=== PATIENT | female | born 1975 | race Caucasian/White ===

== ENCOUNTER 2017-10-06 07:40 | Day surgery (SDC) | payer BC ==
[2017-10-04 11:05] VITALS: BMI 20.5
[2017-10-06 07:54] VITALS: TEMP 98.1
[2017-10-06] MEDS: LACTATED RINGERS 1,000 ML IV SCH ×2 (07:54→08:34)
[2017-10-06] MEDS ORDERED: LIDOCAINE 1% 20 ML VIAL (10MG/ML) FOR IV START SQ ONE (07:57)
[2017-10-06] MEDS ORDERED: MIDAZOLAM 2 MG/2 ML VIAL IVP ONE (08:07)
[2017-10-06] MEDS ORDERED: MIDAZOLAM 2 MG/2 ML VIAL IV ONE (08:09)
[2017-10-06] MEDS ORDERED: LIDOCAINE 1% INJ 10MG/ML (20 ML MDV) ONE (08:35)
[2017-10-06] MEDS ORDERED: PROPOFOL 10 MG/ML 20 ML VIAL IV ONE (08:35)
--- NOTE | 2017-10-06 08:39 | P.GSHP ---
History of Present Illness H&P Date: 10/06/17 Chief Complaint: GERD This is a 42-year-old female for from Dr. Olivier. Patient's had issues with GERD. She presents today for EGD. 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, laproscopy x 3 for endometriosis, surgery to remove part of cervix, EGD Past Anesthesia/Blood Transfusion Reactions: Motion Sickness, Postoperative Nausea & Vomiting (PONV) Smoking Status: Never smoker - Past Family History Mother Family Medical History: No Reported History Medications and Allergies Home Medications Medication Instructions Recorded Confirmed Type ALPRAZolam [Xanax] 0.125 mg PO DAILY PRN 10/04/17 10/06/17 History Famotidine [Pepcid] 20 mg PO DAILY PRN 10/04/17 10/04/17 History Fexofenadine HCl [Alejandra Allergy] 180 mg PO DAILY 10/04/17 10/04/17 History Lansoprazole [Prevacid] 30 mg PO HS 10/04/17 10/04/17 History Allergies Allergy/AdvReac Type Severity Reaction Status Date / Time adhesive tape Allergy rey skin Verified 10/04/17 11:05 caffeine Allergy Vomiting Verified 10/04/17 10:51 latex Allergy Rash/Hives/ Verified 10/04/17 10:51 itching OTC non drowsy cold Allergy Vomiting Uncoded 10/04/17 11:12 medications Surgical - Exam Vital Signs Temp Pulse Resp BP Pulse Ox 98.1 F 84 15 121/84 98 10/06/17 07:53 10/06/17 07:53 10/06/17 07:53 10/06/17 07:53 10/06/17 07:53 - General well developed, no distress - Eyes PERRL - ENT normal pinna - Neck no masses - Respiratory normal expansion - Cardiovascular Rhythm: regular - Abdomen Abdomen: soft, non tender Assessment and Plan Assessment: GERD. We'll perform EGD.
[2017-10-06 08:53] VITALS: RESP 16
--- NOTE | 2017-10-06 08:53 | P.OP ---
Date of Procedure: 10/06/17 Preoperative Diagnosis: GERD Postoperative Diagnosis: Mild antral gastritis No evidence of hiatal hernia Minimal esophagitis Procedure(s) Performed: EGD Anesthesia: MAC Surgeon: Don Trujillo Pathology: other (Antrum, esophagus) Condition: stable Disposition: PACU Description of Procedure: The patient's placed on the endoscopy table in the lateral position. She received IV sedation. The gastroscope placed oropharynx passed in the esophagus and stomach. Scope was then placed through the pylorus. The first and second portion of the duodenum appeared normal. Scope was then brought back the antrum this was mildly inflamed. A biopsies performed. Scope was unretroflexed and remainder of the stomach appeared normal. There was no hiatal hernia. The GE junction was at 40 cm the distal esophagus minimal inflamed a biopsies performed. The proximal esophagus. Normal. Scope was withdrawn for patient.
[2017-10-06 09:41] VITALS: BP 116/79; PULSE 71
== END 2017-10-06 09:57 | disposition home or self-care (01) ==
LOC: ORWHC2ENDO 07:40
PROVIDERS: ATTEND Surgery
DX: K21.0 Gastro-esophageal reflux disease with esophagitis (principal); K29.50 Unspecified chronic gastritis without bleeding; J45.909 Unspecified asthma, uncomplicated; N80.9 Endometriosis, unspecified; G43.909 Migraine, unspecified, not intractable, without status migrainosus; F41.9 Anxiety disorder, unspecified; I95.9 Hypotension, unspecified; K58.9 Irritable bowel syndrome, unspecified; M19.012 Primary osteoarthritis, left shoulder; M16.12 Unilateral primary osteoarthritis, left hip; M17.12 Unilateral primary osteoarthritis, left knee; Z79.899 Other long term (current) drug therapy; Z91.040 Latex allergy status; Z88.8 Allergy status to other drugs, medicaments and biological substances; Z91.048 Other nonmedicinal substance allergy status
CPT/HCPCS: 88305; 43239; J2250; J2001; J2704

== ENCOUNTER 2017-11-20 06:41 | Day surgery (SDC) | payer BC ==
[2017-11-15 11:10] VITALS: BMI 20.5
[~2017-11-20 06:41] MED LIST: DEXAMETHASONE SOD PHOSPHATE 10 MG/ML 1 ML VIAL IV ONE; HEPARIN SODIUM,PORCINE 5,000 UNIT/ML 1 ML VIAL SQ ONE; LACTATED RINGERS 1,000 ML IV SCH; LIDOCAINE 1% 20 ML VIAL (10MG/ML) FOR IV START INTRADERMA PRN; MORPHINE SULFATE 2 MG/ML SYRINGE IV PRN; ONDANSETRON ODT 4 MG TAB PO ONE; SCOPOLAMINE 1.5MG/72HR PATCH TRANSDERM ONE; ceFAZolin IN SWFI 2 GM/20 ML SYRINGE IVP ONE
[2017-11-20 07:21] VITALS: RESP 16
[2017-11-20] MEDS ORDERED: ONDANSETRON 4 MG/2 ML VIAL IVP ONE ×2 (07:42→09:46)
--- NOTE | 2017-11-20 08:01 | P.GSHP ---
History of Present Illness H&P Date: 11/20/17 Chief Complaint: Right upper quadrant pain, biliary dyskinesia This a 42-year-old female who who presents today for laparoscopic cholecystectomy. Patient has had complaints are upper quadrant pain. Her recent HIDA scan shows abnormal ejection fraction consistent with biliary dyskinesia. The ejection fraction is 30%. Past Medical History Past Medical History: Asthma, GERD/Reflux Additional Past Medical History / Comment(s): states "gallbladder working at 30% ",intermittent abdominal pain,hx endometriosis, seasonal allergies,"my heart skips a beat once in a while" History of Any Multi-Drug Resistant Organisms: None Reported Past Surgical History: Hysterectomy, Orthopedic Surgery Additional Past Surgical History / Comment(s): laparoscopy Past Anesthesia/Blood Transfusion Reactions: Motion Sickness, Postoperative Nausea & Vomiting (PONV) Smoking Status: Never smoker - Past Family History Mother Family Medical History: No Reported History Medications and Allergies Home Medications Medication Instructions Recorded Confirmed Type ALPRAZolam [Xanax] 0.125 mg PO DAILY PRN 10/04/17 11/15/17 History Famotidine [Pepcid] 20 mg PO DAILY PRN 10/04/17 11/15/17 History Fexofenadine HCl [Alejandra Allergy] 180 mg PO DAILY 10/04/17 11/15/17 History Lansoprazole [Prevacid] 30 mg PO HS 10/04/17 11/15/17 History Allergies Allergy/AdvReac Type Severity Reaction Status Date / Time adhesive tape Allergy rey skin Verified 11/20/17 07:07 caffeine Allergy Vomiting Verified 11/20/17 07:07 latex Allergy Rash/Hives/ Verified 11/20/17 07:07 itching OTC non drowsy cold Allergy Vomiting Uncoded 11/20/17 07:07 medications Surgical - Exam Vital Signs Temp Pulse Resp BP Pulse Ox 97.7 F 76 16 105/75 98 11/20/17 07:19 11/20/17 07:19 11/20/17 07:19 11/20/17 07:19 11/20/17 07:19 - General well developed, no distress - Eyes PERRL - ENT normal pinna - Neck no masses - Respiratory normal expansion - Cardiovascular Abnormal Heart Sounds: systolic murmur - Abdomen Abdomen: soft, non tender Assessment and Plan Assessment: Right upper quadrant pain Chronic cholecystitis, bleeding dyskinesia We'll perform laparoscopic cholecystectomy
[2017-11-20] MEDS ORDERED: fentaNYL (PF) 50 MCG/ML 2 ML AMP ONE (08:04)
[2017-11-20] MEDS ORDERED: PROPOFOL 10 MG/ML 20 ML VIAL IV ONE (08:04)
[2017-11-20] MEDS ORDERED: SUCCINYLCHOLINE CHLORIDE 100 MG/5 ML SYR IV ONE (08:04)
[2017-11-20] MEDS ORDERED: LIDOCAINE 1% INJ 10MG/ML (20 ML MDV) ONE (08:04)
[2017-11-20] MEDS ORDERED: GLYCOPYRROLATE 0.2 MG/ML 2 ML VIAL ONE (08:04)
[2017-11-20] MEDS ORDERED: ROCURONIUM BROMIDE 10 MG/ML 10 ML VIAL IV ONE (08:04)
[2017-11-20] MEDS ORDERED: NEOSTIGMINE 1 MG/ML 10 ML VIAL ONE (08:04)
[2017-11-20] MEDS ORDERED: BUPIVACAINE (PF) 0.25% 30 ML VIAL SQ ONE (08:28)
--- NOTE | 2017-11-20 08:56 | P.OP ---
Date of Procedure: 11/20/17 Preoperative Diagnosis: Chronic cholecystitis Postoperative Diagnosis: Chronic cholecystitis Procedure(s) Performed: Endoscopic cholecystectomy Anesthesia: KARO Surgeon: Don Trujillo Estimated Blood Loss (ml): 5 Pathology: other (Gallbladder) Condition: stable Disposition: PACU Description of Procedure: The patient was placed on the operating table. The patient received a general endotracheal tube anesthesia. The patients abdomen was prepped and draped in the usual sterile fashion. Through an infraumbilical stab incision, the fascia of the anterior abdominal wall was grasped with a pair of Kochers and then the Veress needle was placed in the peritoneal cavity. Position of the Veress needle was confirmed with positive drop test. The abdomen was then insufflated. After adequate insufflation, the 10 mm trocar was placed in the peritoneal cavity. Following this the laparoscope was placed in the peritoneal cavity. The patient was placed in the head-up, right side up position and then a 5 mm trocar was placed in the right lateral and right subcostal position under direct visualization. A 8 mm trocar was placed in the epigastric position. The gallbladder was grasped in the fundus and infundibulum. Traction on the gallbladder was placed in the lateral and the cephalad positions. The triangle of Calot was visualized.. The cystic duct was bluntly dissected until the union of the cystic duct and common bile duct was seen. The cystic duct was then divided and sealed with the Harmonic scissors. A PDS Endoloop was then placed throughout the cystic duct stump. The cystic artery divided and sealed with the Harmonic scissors. The gallbladder was then removed from the liver bed using Harmonic scissors. The gallbladder was then extracted through the epigastric port site. Operative field was checked for any bleeding spots and Harmonic scissors was used to coagulate the liver bed. The abdomen was irrigated. The trocars were removed. The skin was closed using interrupted 3-0 Vicryl suture. Dermabond dressing were applied. The patient tolerated the procedure well.
[2017-11-20 09:15] VITALS: TEMP 96.9
[2017-11-20] MEDS ORDERED: KETOROLAC 30 MG/ML 1 ML VIAL IVP ONE (09:56)
[2017-11-20] MEDS: fentaNYL (PF) 50 MCG/ML 2 ML AMP IV ONE ×2 (10:06→10:18)
[2017-11-20] MEDS ORDERED: PROMETHAZINE INJ 25 MG/ML 1 ML VIAL IVPB ONE (11:51)
[2017-11-20 13:21] VITALS: BP 115/79; PULSE 86
== END 2017-11-20 13:48 | disposition home or self-care (01) ==
LOC: OR 06:41
PROVIDERS: ATTEND Surgery
DX: K81.1 Chronic cholecystitis (principal); K21.9 Gastro-esophageal reflux disease without esophagitis; J45.909 Unspecified asthma, uncomplicated; Z79.899 Other long term (current) drug therapy
CPT/HCPCS: 88304; 47562; J1644; J1100; J2550; J2710; J2405; J2001; J3010; J1885; J2270; J0330; J2704; J0690

== ENCOUNTER → 2020-05-20 | Outpatient (CLI) | payer BC ==
--- NOTE | 2020-05-21 11:30 | MM ---
Reason for exam: screening (asymptomatic). Last mammogram was performed 5 years ago. History: Patient is postmenopausal and is nulliparous. Family history of breast cancer in maternal grandmother at age 60. Physical Findings: A clinical breast exam by your physician is recommended on an annual basis and results should be correlated with mammographic findings. MG 3D Screening Mammo W/Cad Bilateral CC and MLO view(s) were taken. Prior study comparison: June 02, 2015, bilateral MG 3d diag mammo w/cad [facility]. November 14, 2011, mammogram, performed at [facility]. The breast tissue is heterogeneously dense. This may lower the sensitivity of mammography. Finding: There are intermediate concern, suspicious multiple sized, high density, circumscribed, scattered masses in both breasts. New finding since June 02, 2015 and November 14, 2011. These results were verbally communicated with the patient and result sheet given to the patient on 05/20/20. ASSESSMENT: Incomplete: need additional imaging evaluation, BI-RAD 0 RECOMMENDATION: Ultrasound of both breasts. [facility] will attempt to contact patient to return for ultrasound.
== END | disposition home or self-care (01) ==
LOC: RADMAMWWP 07:49
PROVIDERS: ATTEND Internal Medicine Geriatric Medicine
DX: Z12.31 Encounter for screening mammogram for malignant neoplasm of breast (principal)
CPT/HCPCS: 77063; 77067

== ENCOUNTER → 2020-05-22 | Outpatient (CLI) | payer BC ==
--- NOTE | 2020-05-22 11:46 | USB ---
Reason for exam: additional evaluation requested from abnormal screening. History: Patient is postmenopausal and is nulliparous. Family history of breast cancer in maternal grandmother at age 60. Physical Findings: Nurse Summary: bilateral nodularities, movable, tender (nurse mj). US Breast Workup [facility] Right complete breast ultrasound includes all four quadrants, the retroareolar region and axilla. Finding demonstrates a 0.6 x 0.3 x 0.6cm cystic cluster at 5 o'clock and a 1.3 x 0.6 x 0.9cm cystic cluster at 11 o'clock. Left complete breast ultrasound includes all four quadrants, the retroareolar region and axilla. Finding demonstrates a 0.7 x 0.4 x 0.7cm cystic cluster at 3 o'clock. Multiple cystic areas bilaterally. These results were verbally communicated with the patient and result sheet given to the patient on 05/22/20. ASSESSMENT: Probably benign, BI-RAD 3 RECOMMENDATION: Follow-up diagnostic mammogram and ultrasound of both breasts in 6 months.
== END | disposition home or self-care (01) ==
LOC: RADUSWWP 08:54
PROVIDERS: ATTEND Internal Medicine Geriatric Medicine
DX: R92.8 Other abnormal and inconclusive findings on diagnostic imaging of breast (principal)

== ENCOUNTER → 2020-11-05 | Outpatient (CLI) | payer BC ==
--- NOTE | 2020-11-05 15:21 | XR ---
EXAMINATION TYPE: XR chest 2V DATE OF EXAM: 11/05/2020 COMPARISON: NONE HISTORY: Z 86.16, cough TECHNIQUE: Frontal and lateral views of the chest are obtained. FINDINGS: There is no focal air space opacity, pleural effusion, or pneumothorax seen. The cardiac silhouette size is within normal limits. Aorta is dense. The osseous structures are intact. IMPRESSION: No acute cardiopulmonary process.
== END | disposition home or self-care (01) ==
LOC: RADXRMAIN 14:48
PROVIDERS: ATTEND Internal Medicine Geriatric Medicine
DX: Z09 Encounter for follow-up examination after completed treatment for conditions other than malignant neoplasm (principal); Z86.16 Personal history of COVID-19
CPT/HCPCS: 71046

== ENCOUNTER → 2021-01-07 | Outpatient (CLI) | payer BC ==
--- NOTE | 2021-01-07 15:55 | USB ---
EXAMINATION TYPE: US breast limited BILAT DATE OF EXAM: 01/07/2021 COMPARISON: 01/07/2021, 05/22/2020 CLINICAL HISTORY: R92.2 Inconclusive mammogram. Findings: The right breast was scanned with ultrasound at 5:00 and 11:00 and the left breast was scanned with u ltrasound at 3:00. Scattered simple, clustered and complicated cysts are presumed benign due to the r ule of multiplicity and bilaterality. IMPRESSION: No sonographic evidence for malignancy. BI-RADS 2, benign. Recommendation: Bilateral screening mammogram is recommended in one year.
--- NOTE | 2021-01-08 10:50 | MM ---
Reason for exam: follow-up at short interval from prior study. Last mammogram was performed 8 months ago. History: Patient is postmenopausal and is nulliparous. Family history of breast cancer in maternal grandmother at age 60. Physical Findings: Nurse did not find any significant physical abnormalities on exam. MG 3D Diag Mammo W/Cad [facility] Bilateral CC and MLO view(s) were taken. Prior study comparison: May 20, 2020, bilateral MG 3d screening mammo w/cad. June 02, 2015, bilateral MG 3d diag mammo w/cad [facility]. There are scattered fibroglandular densities. Bilateral waxing and waning well circumscribed asymmetries are consistent with cystic changes. These results were verbally communicated with the patient and result sheet given to the patient on 01/07/21. ASSESSMENT: Incomplete: need additional imaging evaluation, BI-RAD 0 RECOMMENDATION: Ultrasound of both breasts. (as per prior report) [facility]
== END | disposition home or self-care (01) ==
LOC: RADMAMWWP 14:46
PROVIDERS: ATTEND Internal Medicine Geriatric Medicine
DX: R92.2 Inconclusive mammogram (principal); N64.89 Other specified disorders of breast; Z78.0 Asymptomatic menopausal state; Z80.3 Family history of malignant neoplasm of breast
CPT/HCPCS: 77062; 77066

== ENCOUNTER → 2021-12-28 | Outpatient (CLI) | payer BC ==
--- NOTE | 2021-12-29 06:10 | US ---
EXAMINATION TYPE: US thyroid st tissue head/neck DATE OF EXAM: 12/28/2021 COMPARISON: NONE CLINICAL HISTORY: E04.1 THYROID NODULE. GLAND SIZE: Right Lobe: 4.2 x 1.1 x 1.1 cm Overall Parenchyma: homogenous Left Lobe: 4.4 x 0.9 x 1.5 cm Overall Parenchyma: homogeneous Isthmus Thickness: cm NODULES RIGHT: # of nodules measured on right: 1 1. 0.8 X 0.4 x 0.4 cm, mid, cystic or almost completely cystic, anechoic nodule, which is wider timmy n tall, with smooth margins, with echogenic foci. No prior LEFT: # of nodules measured on left: 0 ISTHMUS: # of nodules measured in the isthmus: 0 Bilateral neck scanned, no evidence of lymphadenopathy. Probable area of fullness scanned, no abnormality seen. IMPRESSION: Homogeneous normal-sized thyroid with 8 mm cystic nodule right thyroid lobe. 2017 ACR TI-RADS LEVEL: TR-RADS 3 - Mildly Suspicious: Follow if > 1.5 cm, FNA if > 2.5 cm *Highest TI-RADS level nodule reported
== END | disposition home or self-care (01) ==
LOC: RADUSWWP 16:17
PROVIDERS: ATTEND Otolaryngology
DX: E04.1 Nontoxic single thyroid nodule (principal)
CPT/HCPCS: 76536

== ENCOUNTER → 2022-02-16 | Outpatient (CLI) | payer BC ==
--- NOTE | 2022-02-17 18:16 | MM ---
Reason for Exam: Screening (asymptomatic). Last mammogram was performed 1 year(s) and 2 month(s) ago. Patient History: Menarche at age 13. Patient has no children. Hysterectomy at age 40. Postmenopausal. Maternal grandmother had breast cancer, age 60. Risk Values: Smitha 5 year model risk: 0.9%. NCI Lifetime model risk: 10.5%. Prior Study Comparison: 06/02/2015 Bilateral Diagnostic Mammogram, [facility]. 05/20/2020 Bilateral Screening Mammogram, [facility]. 01/07/2021 Bilateral Diagnostic Mammogram, [facility]. Tissue Density: There are scattered fibroglandular densities. Findings: Analyzed By CAD. Chronic bilateral circumscribed nodularity in an overall benign pattern. Areas of asymmetric density are unchanged. No significant change from prior exams. Overall Assessment: Benign, BI-RAD 2 Management: Screening Mammogram of both breasts in 1 year. 1. Patient should continue monthly self breast exams. 2. A clinical breast exam by your physician is recommended on an annual basis. 3. This exam should not preclude additional follow-up of suspicious palpable abnormalities. Electronically signed and approved by: Noehmi Christopher M.D. Radiologist
== END | disposition home or self-care (01) ==
LOC: RADMAMWWP 15:57
PROVIDERS: ATTEND Internal Medicine Geriatric Medicine
DX: Z12.31 Encounter for screening mammogram for malignant neoplasm of breast (principal); Z78.0 Asymptomatic menopausal state; Z80.3 Family history of malignant neoplasm of breast
CPT/HCPCS: 77063; 77067

== ENCOUNTER → 2023-12-22 | Outpatient (CLI) | payer BC ==
--- NOTE | 2023-12-22 16:53 | US ---
EXAMINATION TYPE: US thyroid st tissue head/neck DATE OF EXAM: 12/22/2023 COMPARISON: US 2021 CLINICAL INDICATION: Female, 48 years old with history of E04.1 THYROID NODULE; GLAND SIZE: Right Lobe: 4.0 x 1.2 x 1.5 cm Overall Parenchyma: homogeneous Left Lobe: 4.2 x 1.1 x 1.4 cm Overall Parenchyma: homogeneous Isthmus Thickness: 0.2 cm NODULES RIGHT: # of nodules measured on right: 1 1. 1.1 X 0.6 x 0.9 cm, mid, Prior size: 0.8 x 0.4 x 0.8 cm TIRADS Score: 0 TIRADS Category 1: Benign Composition: Cystic or almost completely cystic (0 points). Recommendation: No FNA LEFT: # of nodules measured on left: 1 subcentimeter nodule ISTHMUS: # of nodules measured in the isthmus: 0 Bilateral neck scanned, no evidence of lymphadenopathy. IMPRESSION: No suspicious thyroid nodules.
== END | disposition home or self-care (01) ==
LOC: RADUSWWP 14:54
PROVIDERS: ATTEND Otolaryngology
DX: E04.1 Nontoxic single thyroid nodule (principal)
CPT/HCPCS: 76536

== ENCOUNTER → 2024-01-02 | Outpatient (CLI) | payer BC ==
--- NOTE | 2024-01-05 10:53 | MM ---
Reason for Exam: Screening (asymptomatic). Last mammogram was performed 1 year(s) and 10 month(s) ago. Patient History: Menarche at age 13. Patient has no children. Hysterectomy at age 40. Postmenopausal. Maternal grandmother had breast cancer, age 60. Risk Values: Smitha 5 year model risk: 1.0%. NCI Lifetime model risk: 10.2%. Prior Study Comparison: 05/20/2020 Bilateral Screening Mammogram, [facility]. 01/07/2021 Bilateral Diagnostic Mammogram, [facility]. 02/16/2022 Bilateral MG 3D screening mammo w/cad, [facility]. Tissue Density: There are scattered areas of fibroglandular density. Findings: Analyzed By CAD. Right breast: There is no suspicious group of microcalcifications or new suspicious mass. Left breast: There is no suspicious group of microcalcifications or new suspicious mass. Overall Assessment: Negative, BI-RAD 1 Management: Screening Mammogram of both breasts in [address] [facility] will attempt to contact patient to return for supplemental views and ultrasound if indicated. Patient should continue monthly self-breast exams. A clinical breast exam by your physician is recommended on an annual basis. This exam should not preclude additional follow-up of suspicious palpable abnormalities. Note on Smitha scores and lifetime risk: 1. A Smitha score greater than 3% is considered moderate risk. If this is the case, consider specialist referral to assess eligibility for a risk reducing agent. 2. If overall lifetime risk for the development of breast cancer is 20% or higher, the patient may qualify for future screening with alternating mammogram and breast MRI. Electronically signed and approved by: Sarbjit Garduno DO
== END | disposition home or self-care (01) ==
LOC: RADMAMWWP 12:41
PROVIDERS: ATTEND Internal Medicine Geriatric Medicine
DX: Z12.31 Encounter for screening mammogram for malignant neoplasm of breast (principal); Z78.0 Asymptomatic menopausal state; Z80.3 Family history of malignant neoplasm of breast
CPT/HCPCS: 77063; 77067

== ENCOUNTER → 2024-01-10 | Outpatient (CLI) | payer BC ==
--- NOTE | 2024-01-28 20:49 | MR ---
EXAMINATION TYPE: MR foot RT wo con DATE OF EXAM: 01/10/2024 COMPARISON: None available HISTORY: Right foot pain, stress fracture of metatarsal bone of right foot with malunion, subsequent encounter. TECHNIQUE: Multiplanar, multisequence images of the right were acquired without contrast. FINDINGS: BONES/CARTILAGE/JOINT: Bone marrow signal is normal. Articular cartilage is normal. No joint effusion. LIGAMENTS: Increased fluid surrounding the deep and superficial portions of the anterior talofibular ligament, s uggesting low-grade sprain. Spring ligament is normal. Lisfranc ligament normal. Normal plantar plates. TENDONS: Flexor tendons are normal. Extensor tendons are normal. SOFT TISSUES: No bursal distention. No intermetatarsal bursa or soft tissue mass. Sinus tarsi is normal. Plantar fascia is normal. Neurovascular structures are normal. IMPRESSION: 1. Normal bone marrow signal, no evidence of stress fracture. 2. Low-grade ATFL sprain.
== END | disposition home or self-care (01) ==
LOC: RADMRIMAIN 17:05
PROVIDERS: ATTEND Podiatrist Foot & Ankle Surgery
DX: M84.37 Stress fracture, ankle, foot and toes (principal); S93.601A Unspecified sprain of right foot, initial encounter